=== PATIENT | male | born 1985 | race Caucasian/White ===

== ENCOUNTER 2017-11-04 16:06 | Emergency (ER) | payer MEDICAID ==
--- NOTE | 2017-11-04 17:05 | EDPHY ---
H & P Time Seen by Provider: 11/04/17 16:57 HPI/ROS: CHIEF COMPLAINT: Bilateral foot injury HISTORY OF PRESENT ILLNESS: The patient is a 31-year-old male with no significant past medical history who states that 1 week ago he was sitting on a friend's roof and slipped off and landed on bilateral feet. He has not been evaluated yet but reports that he has had minimal improvement in his pain in both his feet. Denies any back pain or numbness in his legs. He denies any incontinence or saddle paresthesias. Denies any other injuries from the fall. REVIEW OF SYSTEMS: Constitutional: No fever, no chills. Eyes: No discharge. ENT: No sore throat. Cardiovascular: No chest pain, no palpitations. Respiratory: No cough, no shortness of breath. Gastrointestinal: No abdominal pain, no vomiting. Genitourinary: No hematuria. Musculoskeletal: No back pain. Skin: No rashes. Neurological: No headache. Smoking Status: Heavy smoker Physical Exam: General Appearance: Alert and no distress. Eyes: Pupils equal and round no injection. Respiratory: Chest is nontender, lungs are clear to auscultation. Cardiac: regular rate and rhythm. Gastrointestinal: Abdomen is soft and nontender, no masses, bowel sounds normal. Musculoskeletal: Neck is supple and nontender. Extremities have full range of motion and are significant tenderness and ecchymosis to bilateral feet Skin: No rashes or lesions. Constitutional: Initial Vital Signs Temperature (C) 36.5 C 11/04/17 16:25 Heart Rate 77 11/04/17 16:25 Respiratory Rate 18 11/04/17 16:25 Blood Pressure 142/96 H 11/04/17 16:25 O2 Sat (%) 98 11/04/17 16:25 O2 Delivery Mode Room Air Allergies/Adverse Reactions: No Known Allergies Allergy (Unverified 11/04/17 16:30) Home Medications: Medication Instructions Recorded NK [No Known Home Meds] 11/04/17 Medical Decision Making - Diagnostics Imaging Results: Imaging Impressions Ankle X-Ray 11/04/17 17:03 Impression: Negative bilateral ankle series. Foot X-Ray 11/04/17 17:03 Impression: Angulated displaced fractures of the distal second through fifth metatarsals. Ankle X-Ray 11/04/17 17:09 Impression: Negative bilateral ankle series. Foot X-Ray 11/04/17 17:10 Impression: Angulated displaced fractures of the distal second through fifth metatarsals. ED Course/Re-evaluation: 31-year-old male here with multiple metatarsal fractures of the left foot that are subacute from a fall 1 week ago. You're he has a boot that he has been wearing for the last week and crutches. We will keep him in his boot and crutches and he is provided with follow-up with Orthopedics. He understands that following up as soon as possible is important given his delayed presentation. Departure - Departure Disposition: Home, Routine, Self-Care Clinical Impression: Multiple closed fractures of metatarsal bone of left foot Condition: Good Instructions: Foot Fracture in Adults (ED) Additional Instructions: You have fractured 4 metatarsals and you're left foot. He need further evaluation by Orthopedics. I am providing with the number for Orthopedics. Please call them tomorrow morning and schedule follow-up within the next 2-3 days. I am providing with crutches. He will be nonweightbearing on the left foot until seen by Orthopedics. Please remain in the boot that urea already using for the left foot. Referrals: NONE *PRIMARY CARE P,. [Primary Care Provider] - As per Instructions Goldie Kam MD [Medical Doctor] - As per Instructions
[2017-11-04 18:21] VITALS: BP 128/72
--- NOTE | 2017-11-04 18:24 | ASMTCAGE ---
CAGE Do you feel you ought to Answers: Yes cut down on your drinking or drug use? Do people annoy you by Answers: No criticizing your drinking or drug use? Do you feel guilty about Answers: Yes your drinking or drug use? 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 Additional Comments P declined resources. Reports every other day marijuana use. Drinks 3 -5 days/week consuming 3-5 beverages usually 1 beer and the rest 1 -2 oz of hard liquor. Date Signed: 11/04/2017 06:22 PM Electronically Signed By:Ana Rachel RN
--- NOTE | 2017-11-04 18:26 | ASMTCMCOM ---
CM Note CM Note Notes: 11/04/2017 Case Management Note Met w/pt. CAGE completed. Pt refused resources. Pt lives in [facility] with a roommate. Declined to provide roommate name. Formerly employed at [employer] in [place]. Pt is planning to travel to [place] upon d/c from hospital for family wedding. No case management d/c needs identified. Date Signed: 11/04/2017 06:25 PM Electronically Signed By:Ana Rachel RN
== END 2017-11-04 18:19 | disposition home or self-care (01) ==
DX: S92.322A Displaced fracture of second metatarsal bone, left foot, initial encounter for closed fracture (principal); S92.332A Displaced fracture of third metatarsal bone, left foot, initial encounter for closed fracture; S92.342A Displaced fracture of fourth metatarsal bone, left foot, initial encounter for closed fracture; S92.352A Displaced fracture of fifth metatarsal bone, left foot, initial encounter for closed fracture; W13.2XXA Fall from, out of or through roof, initial encounter; Y92.008 Other place in unspecified non-institutional (private) residence as the place of occurrence of the external cause; F17.200 Nicotine dependence, unspecified, uncomplicated

== ENCOUNTER 2017-11-23 13:26 | Day surgery (SDC) | payer MEDICAID ==
--- NOTE | 2017-11-22 16:43 | PDGENHP ---
History & Physical Chief Complaint: left foot multiple metatarsal fractures History of Present Illness: Avtar is a pleasant 31 year old male who presents to the office today after falling off a friends roof onto his bilateral feet on 10/28/17. He was seen at [facility] a week later and was found to have 2nd-5th metatarsal fractures. He was placed in a boot and has been non-weight bearing since that time. 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 We discussed risks, benefits, and alternatives to conservative and surgical intervention and he would like to proceed with surgery. We discussed the risk of non-union as well as smoking cessation. Pertinent Past, Social, Family History: PMH: none. SH: current smoker. FH: non -contributory Relevant Physical Exam: Upon evaluation of his left foot, he has moderate swelling throughout the foot. TTP overlying the 2nd, 3rd, and 4th metatarsal. Mild TTP ovelrying the fifth metatarsal. 2+ dorsalis pedis pulse. No pain to palpation of the calcaneous. No pain to palpation throughout the ankle. NV intact Cardiorespiratory Assessment: RRR, CTAB
--- NOTE | 2017-11-23 07:15 | PDHPUP ---
History & Physical Update H&P update statement: This history and physical update is based on an assessment of the patient which was completed after admission or registration (within 24 hours), but prior to the surgery/procedure. H&P update: H&P reviewed & patient examined, no change in patient's condition since H&P completed
[2017-11-23] MEDS ORDERED: ceFAZolin 2 GM/DEXTROSE 100 ML IV ONE (14:00)
[2017-11-23] MEDS ORDERED: LR 1,000 ML IV ONE (14:00)
[2017-11-23] MEDS ORDERED: BUPIVACAINE 0.5% 30 ML SDV ONE (14:01)
[2017-11-23] MEDS ORDERED: BACITRACIN 50,000 UNITS/10 ML SYR IRR ONE (14:02)
[2017-11-23] MEDS ORDERED: POLYMYXIN B SULFATE 500,000 UNIT/10 ML SYR IRR ONE (14:02)
[2017-11-23] MEDS ORDERED: DEXAMETHASONE 4 MG/ML VIAL ONE (16:22)
[2017-11-23] MEDS ORDERED: LIDOCAINE 2% 2 ML INJ ONE (16:22)
[2017-11-23] MEDS ORDERED: ROPIVACAINE HCL 150 MG/30 ML INJ ONE (16:22)
[2017-11-23] MEDS ORDERED: fentaNYL 100 MCG/2 ML INJ ONE (16:22)
[2017-11-23] MEDS ORDERED: PROPOFOL 200 MG/20 ML VIAL ONE (16:42)
--- NOTE | 2017-11-23 17:31 | POSTANESTH ---
Post Anesthetic Evaluation Cardiovascular Status: Normal, Stable Respiratory Status: Normal, Stable Level of Consciousness/Mental Status: Can Participate in Eval, Mildly Sleepy, Arousable Pain Control: Adequate, Prn Tx Ordered (Pt with no pain. Foot numb.) Nausea/Vomiting Control: Adequate, Prn Tx Ordered Complications Possibly Related to Anesthesia: None Noted
--- NOTE | 2017-11-23 17:32 | PDANEPAE ---
ANE History of Present Illness 31 yo male with L broken foot. ANE Past Medical History - Cardiovascular History Hx Hypertension: No Hx Arrhythmias: No Hx Chest Pain: No Hx Coronary Artery / Peripheral Vascular Disease: No Hx CHF / Valvular Disease: No Hx Palpitations: No - Pulmonary History Hx COPD: No Hx Asthma/Reactive Airway Disease: No Hx Recent Upper Respiratory Infection: No Hx Oxygen in Use at Home: No Hx Sleep Apnea: Yes Sleep Apnea Screening Result - Last Documented: Positive - Neurologic History Hx Cerebrovascular Accident: No Hx Seizures: No Hx Dementia: No - Endocrine History Hx Diabetes: No Hypothyroid: No Hyperthyroid: No Obesity: no - Renal History Hx Renal Disorders: No - Liver History Hx Hepatic Disorders: No - Neurological & Psychiatric Hx Hx Neurological and Psychiatric Disorders: No - Cancer History Hx Cancer: No - Congenital Disorder History Hx Congenital Disorders: No - GI History Hx Gastrointestinal Disorders: No - Other Health History Other Health History: PREV FX OF TOES. RECENTLY FELL OFF ROOF SUSTAINING FRACTURES OF 2-5 TOES - Chronic Pain History Chronic Pain: No - Surgical History Prior Surgeries: TONSILLECTOMY ANE Review of Systems Review of systems is: negative Review of Systems: - Exercise capacity METS (RN): 6 METS ANE Patient History - Allergies Allergies/Adverse Reactions: No Known Allergies Allergy (Unverified 11/18/17 16:18) - Home Medications Home Medications: Advil 11/23/17 [Last Taken 11/20/17] Tylenol 11/23/17 [Last Taken 11/22/17] - NPO status NPO Since - Liquids (Date): 11/23/17 NPO Since - Liquids (Time): 10:00 NPO Since - Solids (Date): 11/22/17 NPO Since - Solids (Time): 22:00 - Anes Hx Anes Hx: no prior problems - Smoking Hx Smoking Status: Heavy smoker Marijuana use: Yes - Alcohol Use Alcohol Use: Occasionally - Family Anes Hx Family Anes Hx: neg - N/A ANE Labs/Vital Signs - Vital Signs Blood Pressure: 133/94 Heart Rate: 72 Respiratory Rate: 18 O2 Sat (%): 98 Height: 177.8 cm Weight: 77.111 kg ANE Physical Exam - Airway Neck exam: FROM Mallampati Score: Class 1 Mouth exam: normal dental/mouth exam - Pulmonary Pulmonary: clear to auscultation - Cardiovascular Cardiovascular: regular rate and rhythym - ASA Status ASA Status: II ANE Anesthesia Plan Anesthesia Plan: GA w LMA Regional Anesthesia: popliteal SNB, POPC/PSR
[2017-11-23] MEDS ORDERED: LR 500 ML IV PRN (18:12)
[2017-11-23] MEDS ORDERED: ONDANSETRON 4 MG/2 ML VIAL IVP PRN (18:12)
[2017-11-23] MEDS ORDERED: fentaNYL 100 MCG/2 ML INJ IVP PRN (18:12)
[2017-11-23] MEDS ORDERED: ACETAMINOPHEN 500 MG TAB PO PRN (18:12)
[2017-11-23] MEDS ORDERED: NALOXONE HCL 0.4 MG/ML INJ IVP PRN (18:12)
[2017-11-23] MEDS ORDERED: HYDROCODONE/APAP 5/325 TAB PO PRN (18:12)
[2017-11-23] MEDS ORDERED: ALBUTEROL 3 ML DEYVIAL IH PRN (18:12)
[2017-11-23] MEDS ORDERED: DIAZEPAM 5 MG/ML 1 ML SYR IVP PRN (18:12)
[2017-11-23] MEDS ORDERED: KETOROLAC 30 MG/1 ML SDV ONE (18:19)
--- NOTE | 2017-11-23 18:36 | POSTOPPROG ---
Post Op Note Date of Operation: 11/23/17 Surgeon: Goldie Kam Pit Shoveler: coltrain Anesthesia: LMA, Other (Specify) Pre-op Diagnosis: l metetarsal fxs 2-5 Procedure: L metatarsal ORIF 2-5 Inf/Abcess present in the surg proc area at time of surgery?: No Depth: Deep Incisional (Fascial) EBL: 50-100
[2017-11-23 19:14] VITALS: BP 128/99
--- NOTE | 2017-11-23 21:58 | GOP ---
DATE OF OPERATION: 11/23/2017 SURGEON: Goldie Kam MD BRAILLE PROOFREADER: Dustin Blanchard, certified , whose presence was medically necessary. ANESTHESIA: By LMA plus popliteal nerve block, per surgeon's request. PREOPERATIVE DIAGNOSIS: Left metatarsal fractures, 2 through 5. POSTOPERATIVE DIAGNOSIS: Left metatarsal fractures, 2 through 5. PROCEDURE PERFORMED: Open reduction and internal fixation of metatarsals 2, 3, 4, and 5, with the us e of fluoroscopy. FINDINGS: INDICATIONS: This is a 31-year-old male who, approximately 1 month ago, had fallen from a roof and l anded on his foot. He went to the emergency room after the pain was not subsiding after a couple of weeks. He was seen, diagnosed with multiple metatarsal fractures, followed up in the office, and has finally made it to surgery. He wishes to have surgery in order to resolve the problem. DESCRIPTION OF PROCEDURE: The patient was brought to the operating room after the left side had been identified as the correct side by the patient, nurse, and physician. Once in the operating room, he was given a popliteal nerve block and then placed under general anesthesia using an LMA. Once aslee p, a tourniquet was placed around the upper portion of his left calf, with the left lower extremity s terilely prepped and draped in the usual fashion using GSI solution. Once prepped and draped, the li mb was exsanguinated, and the tourniquet was inflated to 250 mmHg. Two incisions were made on the do rsal portion of his foot, between the 2-3 and 3-4 interspaces of the foot, with sharp dissection esparza ied down through the skin and subcutaneous layers. Attention was first turned to the 2nd metatarsal, with blunt dissection carried out in the intermetatarsal space, and sharp dissection around the fibu lar side of the metatarsal. He had an abundant amount of callus formation, indicative of healed bone . The callus had to be taken down and removed, and, due to contracture of the tissue around the area , had to be put back into place. Once in place, a 1.6 mm K-wire was able to be placed through the di stal portion of the fracture and into the shaft, holding it in place. Attention was then turned to t he 3rd metatarsal, which again had to have callus formation taken away in order to allow freeing of t he distal bony fragment, and for it to be put back into place. Once in place, again, a 1.6 mm K-wire was put into place, holding the bony fragment in place. Positions were then checked under fluorosco py to ensure proper positioning, at which point attention was turned to the 4-5 interspace, where sha rp dissection was carried down through the skin and subcutaneous layers, and blunt dissection onto th e shaft of the 4th metatarsal, which had a long oblique fracture with an abundant amount of callus fo rmation, which also had to be taken down. Care was taken to remove just callus formation and not danielle lee bone. Once reasonable takedown had been performed, tissue was able to be released in order to pu ll the metatarsal out to length and hold it in position, and a 2.0 K-wire was passed from distal to p roximal using a retrograde technique secondary to the amount of obliquity associated with the fractur e. Attention was then turned to the 5th metatarsal, which was noted to be much better reduced second madalyn to the other reductions that had just been performed; therefore, a 1.6 mm K-wire was able to be p assed from distal to proximal, with a minimal amount of callus formation having to be removed from ar ound the area of the fracture site. Once in position, fluoroscopy was used to ensure proper position ing of all of the screws, both in the AP, oblique, and lateral views. Once this was ensured, the wir es were bent near the skin and cut short, with pin caps placed on each of the exposed portions of the pins. The wounds were thoroughly irrigated with antibiotic solution and were closed in layers to in clude 3-0 Vicryl for the fascial layer and 4-0 Prolene suture in a vertical mattress-type stitch for the skin. Tourniquet was deflated at 71 minutes. The incisions were dressed with Xeroform. All wou nds were then dressed with 4x4s and wrapped in Kerlix. Tourniquet was removed from the leg, and an A ce wrap was placed around the foot and ankle. He was then woken up, extubated, transferred onto a [facility], and sent to the recovery room in good condition. TOURNIQUET TIME: Seventy-one minutes. /[id number]/MODL
== END 2017-11-23 19:19 | disposition home or self-care (01) ==
LOC: FSGY 13:26
PROVIDERS: ATTEND Orthopaedic Surgery
PROC: 0QSP04Z Reposition Left Metatarsal with Internal Fixation Device, Open Approach (ICD-10-PCS; principal; 2017-11-23 16:15)
DX: S92.352A Displaced fracture of fifth metatarsal bone, left foot, initial encounter for closed fracture (principal); S92.342A Displaced fracture of fourth metatarsal bone, left foot, initial encounter for closed fracture; S92.332A Displaced fracture of third metatarsal bone, left foot, initial encounter for closed fracture; S92.322A Displaced fracture of second metatarsal bone, left foot, initial encounter for closed fracture; W13.2XXA Fall from, out of or through roof, initial encounter; Y92.008 Other place in unspecified non-institutional (private) residence as the place of occurrence of the external cause; G47.30 Sleep apnea, unspecified; Z72.0 Tobacco use
CPT/HCPCS: C1713; J0690; J1100; J1885; J2704; J2795; J3010